=== PATIENT | female | born 1995 | race Caucasian/White ===

== ENCOUNTER → 2020-07-21 16:48 | Outpatient (CLI) | payer OTHER, SELFPAY ==
[2020-07-21 17:15] LABS: Add Manual Diff / Slide Review NO; Basophils Absolute Auto 0 /uL (0-100); Basophils Percent Auto 0.6 % (0-2); Eosinophils Absolute Auto 300 /uL (0-450); Eosinophils Percent Auto 3.5 % (2-4); Hematocrit 43.1 % (36-46); Hemoglobin 14.3 g/dL (12.0-16.0); Lymphocytes Absolute Auto 2700 /uL (1100-4500); Lymphocytes Percent Auto 36.3 % (25-40); Mean Corpuscular HGB Conc 33.3 % (30-36); Mean Corpuscular Hemoglobin 29.7 PG (26-34); Mean Corpuscular Volume 89.2 fL (80-100); Monocytes Absolute Auto 400 /uL (0-900); Monocytes Percent Auto 4.8 % (3-14); Neutrophils Absolute Auto 4100 /uL (1500-7000); Neutrophils Percent Auto 54.8 % (50-75); Platelet Count 252 X10^3/uL (150-400); Red Blood Cell Count 4.83 X10^6/uL (4.0-5.2); Red Cell Distribution Width 13.5 % (11.6-14.8); White Blood Cell Count 7.5 X10^3/uL (4.5-11.0)
[2020-07-21 17:39] LABS: Alanine Aminotransferase 14 IU/L (<35); Albumin 4.1 g/dL (3.5-5.0); Albumin Globulin Ratio 1.1 (1.0-2.8); Alkaline Phosphatase 61 U/L (38-126); Aspartate Aminotransferase 22 IU/L (14-36); BUN Creatinine Ratio 16.5 (6-22); Bilirubin Total 0.4 mg/dL (0.2-1.3); Blood Urea Nitrogen 15 mg/dL (7-17); Calcium 9.7 mg/dL (8.4-10.2); Carbon Dioxide 29 mmol/L (22-32); Chloride 105 mmol/L (98-107); Estimated Glomerular Filt Rate > 60.0 mL/min (>60); Globulin 3.8 g/dL (1.7-4.1); Glucose 94 mg/dL (70-100); HEMOLYSIS < 15 (0-50); Potassium 4.1 mmol/L (3.4-5.1); Sodium 139 mmol/L (137-145); Total Protein 7.9 g/dL (6.3-8.2)
[2020-07-21 17:57] LABS: Erythrocyte Sedimentation Rate 9 MM/HR (0-20)
[2020-07-21 18:01] LABS: C-Reactive Protein Quant 1.1 mg/dL (<1.0)
== END ==
PROVIDERS: PCP Family Medicine; Referring Provider Family Medicine; Visit Provider Family Medicine
DX: G43.909 Migraine, unspecified, not intractable, without status migrainosus (principal); H02.409 Unspecified ptosis of unspecified eyelid
CPT/HCPCS: 36415; 80053; 85025; 85651; 86140

== ENCOUNTER → 2020-09-24 09:46 | Outpatient (CLI) | payer OTHER, SELFPAY ==
--- NOTE | 2020-09-24 09:48 | DI.RAD.S_ITS ---
PROCEDURE: XR CHEST 2V INDICATIONS: chest discomfort TECHNIQUE: 2 views of the chest were acquired. COMPARISON: None. FINDINGS: Surgical changes and devices: None. Lungs and pleura: Lungs are clear. No pleural effusions or pneumothorax. Mediastinum: Mediastinal contours are normal. Heart size is normal. Bones and chest wall: No suspicious bony abnormalities. Soft tissues appear unremarkable. IMPRESSION: Normal chest plain films. Dictated by: Monroe Goldstein M.D. on 09/24/2020 at 10:06 Approved by: Monroe Goldstein M.D. on 09/24/2020 at 10:06
[2020-09-24 11:27] LABS: Alanine Aminotransferase 45 IU/L (<35); Albumin 4.1 g/dL (3.5-5.0); Albumin Globulin Ratio 1.4 (1.0-2.8); Alkaline Phosphatase 76 U/L (38-126); Aspartate Aminotransferase 28 IU/L (14-36); BUN Creatinine Ratio 24.1 (6-22); Bilirubin Total 0.2 mg/dL (0.2-1.3); Blood Urea Nitrogen 19 mg/dL (7-17); Calcium 9.6 mg/dL (8.4-10.2); Carbon Dioxide 24 mmol/L (22-32); Chloride 106 mmol/L (98-107); Estimated Glomerular Filt Rate > 60.0 mL/min (>60); Glucose 85 mg/dL (70-100); HEMOLYSIS < 15 (0-50); Potassium 4.4 mmol/L (3.4-5.1); Sodium 136 mmol/L (137-145); Total Protein 7.1 g/dL (6.3-8.2)
== END ==
PROVIDERS: PCP Family Medicine; Referring Provider Family Medicine; Visit Provider Family Medicine
DX: C96.6 Unifocal Langerhans-cell histiocytosis (principal); R74.8 Abnormal levels of other serum enzymes; R07.9 Chest pain, unspecified
CPT/HCPCS: 36415; 71046; 80053

== ENCOUNTER 2020-12-18 11:44 | Inpatient (IN) | payer OTHER, SELFPAY ==
[2020-12-18] VITALS (17 sets, daily range): BP systolic 109–132; BP diastolic 61–74; PULSE 105–152; RESP 14–22; TEMP 37.4–38.4; O2SAT 99–100; BMI 35.5
--- NOTE | 2020-12-18 12:08 | ED.RECABL ---
HPI - Recheck/Abnormal Lab/Rx General Chief Complaint: Recheck/Abnormal Lab/Rx Stated Complaint: referred by oncology, low WBC count Time Seen by Provider: 12/18/20 11:45 Source: patient Mode of arrival: Ambulatory Limitations: no limitations History of Present Illness HPI narrative: Patient is a 25-year-old female. She is undergoing chemotherapy. Last week she was having a sore throat and was started on antibiotics by her oncologist. States that the sore throat went away but now returns again today. She denies any chest pain. No abdominal pain. No nausea vomiting. She was sent to the emergency department because of the continued sore throat by her oncologist and because her blood counts were decreasing. Related Data Home Medications Medication Instructions Recorded Confirmed acyclovir 800 mg PO BID 12/10/20 12/10/20 clonazepam 0.5 mg PO BEDTIME 12/10/20 12/10/20 ergocalciferol (vitamin D2) 50,000 unit PO Q7D 12/10/20 12/10/20 [Vitamin D2] famotidine 40 mg PO DAILY 12/10/20 12/10/20 ferrous sulfate 324 mg PO DAILY 12/10/20 12/10/20 letrozole 2.5 mg PO DAILY 12/10/20 12/10/20 melatonin 10 mg PO BEDTIME PRN 12/10/20 12/10/20 norethindrone acetate 5 mg PO DAILY 12/10/20 12/10/20 oxycodone 5 mg PO Q4H PRN 12/10/20 12/10/20 prochlorperazine maleate 5 mg PO BID PRN 12/10/20 12/10/20 senna 8.6 mg PO BID PRN 12/10/20 12/10/20 Previous Rx's Medication Instructions Recorded pantoprazole 20 mg tablet,delayed 20 mg PO DAILY #90 tab 11/06/20 release ciprofloxacin HCl 500 mg PO BID #14 tab 12/16/20 Allergies Allergy/AdvReac Type Severity Reaction Status Date / Time No Known Drug Allergies Allergy Verified 12/18/20 13:02 Review of Systems Constitutional Constitutional: Denies chills, Denies fever(s) and Denies headache(s) Eyes Eyes: Denies change in vision ENT Ears, Nose, Mouth, and Throat: Denies vertigo, Denies dizziness, Denies headache(s) and Reports sore throat Cardiovascular Cardiovascular: Denies chest pain and Denies dyspnea Respiratory Respiratory: Denies dyspnea Gastrointestinal Gastrointestinal: Denies abdominal pain, Denies nausea and Denies vomiting Genitourinary Genitourinary: Denies dysuria Genitourinary: Denies dysuria Musculoskeletal Musculoskeletal: Denies arthralgias and Denies myalgias Integumentary/Breasts Skin/Breast: Denies rash Neurologic Neurologic: Denies behavioral changes, Denies vertigo, Denies dizziness and Denies headache(s) Psychiatric Psychiatric: Denies behavioral changes Endocrine Endocrine: Denies flushing Hematologic/Lymphatic On Anticoagulants: No Allergic/Immunologic Allergic/Immunologic: Denies urticaria Patient History Medical History Acne (~2016) Acne vulgaris Anxiety (~2017) Chicken pox (~1995) Dog bite of hand GERD (gastroesophageal reflux disease) (~2018) IBS (irritable bowel syndrome) (~2018) Langerhans cell histiocytoses Migraines (~2017) Ovarian cyst (~2017) PTSD (post-traumatic stress disorder) (~2017) Tinnitus (~2016) Uterine polyp (~2018) Surgical History (Updated 12/10/20 @ 10:17 by Yandel Delcid MD) Anesthesia History of bunionectomy (~2012) History of dilation and curettage (~2018) History of foot surgery (~2018) Family History Father Diabetes mellitus Hyperlipidemia Hypertension Grandfather Skin cancer Grandmother Acute kidney failure Grandfather Lung cancer Diabetes mellitus Hyperlipidemia Hypertension Mental health problem Alzheimer's disease Grandmother Breast cancer Diabetes mellitus Social History Smoking Status: Never smoker Smoking Status: Never smoker Substance Use Type: marijuana Exam Initial Vital Signs Initial Vital Signs: Vital Signs Temperature 99.5 F 12/18/20 11:53 Pulse Rate 122 H 12/18/20 11:53 Respiratory Rate 16 12/18/20 11:53 Blood Pressure 132/74 12/18/20 11:53 Pulse Oximetry 100 12/18/20 11:53 Const General: cooperative, comfortable and well developed Limitations: mental status not altered [facility] Head: normal to inspection and normocephalic Ears: external ears normal Mouth: oral mucosae normal Teeth and gingiva: dentition normal Throat: uvula midline and other (Exudates right-sided) Resp Effort & Inspection: normal respiratory effort Auscultation: clear to auscultation bilaterally Cardio Rate: tachycardic Rhythm: regular rhythm GI Inspection: non-distended Palpation: soft Skin Lesions: no lesions Rashes: no rashes Neuro General: patient alert, patient awake and patient oriented x3 Cognition: normal cognition Speech: speech normal Extrem General: normal to inspection and capillary refill normal Psych Appearance: grossly normal and well kempt Course Orders Ordered: ED Orders 12/18/20 12:04 EKG-12 Lead Stat 12/18/20 12:10 XR chest 1V Stat 12/18/20 12:18 Blood Culture Stat Lactate (Lactic Acid) Stat Lipase Stat Monotest Stat Procalcitonin Stat 12/18/20 12:31 Urinalysis and Microscopic Stat Urine Culture Stat 12/18/20 12:37 COVID19 - ADMIT ([facility] swab/PCR) Stat 12/18/20 13:43 Throat Culture Stat 12/18/20 14:03 Consult to Hospitalist Service Stat 12/19/20 05:00 Basic Metabolic Panel DAILY Complete Blood Count AUTO DIFF DAILY Hemoglobin A1C% w Est Avg Glu Routine Magnesium DAILY TSH w/ Reflex to FT4 Routine 12/20/20 05:00 Basic Metabolic Panel DAILY Complete Blood Count AUTO DIFF DAILY Magnesium DAILY 12/21/20 05:00 Basic Metabolic Panel DAILY Complete Blood Count AUTO DIFF DAILY Magnesium DAILY Acetaminophen (Acetaminophen 325 Mg Tablet) 650 mg PO Q6HR PRN PRN Reason: Fever/Mild Pain (1-3) Clotrimazole (Clotrimazole Yadira 10 Mg) 10 mg PO 5XD [place] Enoxaparin Sodium (Enoxaparin 40 Mg/0.4 Ml Syringe) 40 mg SUBCUT DAILY [place] Sodium Chloride (Normal Saline 0.9%) 1,000 mls @ 100 mls/hr IV CONT [place] Ondansetron HCl (Ondansetron 4 Mg/2 Ml Inj) 4 mg IV Q8HR PRN PRN Reason: Nausea And Vomiting Discontinued Medications Clonazepam (Clonazepam 0.5 Mg Tablet) 0.5 mg PO NOW ONE Stop: 12/18/20 14:38 Sodium Chloride (Normal Saline 0.9%) 1,000 mls @ 1,000 mls/hr IV BOLUS ONE Stop: 12/18/20 13:24 Last Infusion: 12/18/20 14:05 Dose: 0 mls/hr Documented by: Admin: 12/18/20 12:35 Dose: 1,000 mls/hr Documented by: KAYY Cefepime HCl 2 gm/ Sodium (Chloride) 100 mls @ 200 mls/hr IV NOW ONE Stop: 12/18/20 14:00 Last Admin: 12/18/20 14:13 Dose: 200 mls/hr Documented by: KAYY Lidocaine HCl (Lidocaine Viscous 2% 15 Ml Solution) 15 ml PO NOW ONE Stop: 12/18/20 13:05 Last Admin: 12/18/20 13:22 Dose: 15 ml Documented by: KAYY Vital Signs Vital signs: Vital Signs - 8 hr 12/18/20 11:53 12/18/20 12:05 12/18/20 12:40 Temperature 99.5 F Pulse Rate 122 H 122 H 125 H Respiratory Rate 16 15 17 Blood Pressure 132/74 132/74 128/69 Pulse Oximetry 100 100 100 12/18/20 13:00 12/18/20 13:30 12/18/20 13:42 Temperature Pulse Rate 115 H 105 H 111 H Respiratory Rate 14 20 22 Blood Pressure 116/67 109/61 Pulse Oximetry 100 100 100 12/18/20 14:00 Temperature Pulse Rate 125 H Respiratory Rate 20 Blood Pressure 113/71 Pulse Oximetry 99 MDM - Recheck/Abnormal Lab/Rx Lab Data Attestation: I reviewed the patient's lab results. Labs: Lab Results 12/18/20 12/18/20 12/18/20 Range/Units 12:18 12:18 12:18 Lactate 0.9 (0.7-2.1) mmol/L Lipase 65 (23-300) U/L Procalcitonin 0.04 (<0.5) ng/mL SARS-CoV-2 (PCR) (Negative) Monoscreen Negative (Negative) 12/18/20 Range/Units 12:37 Lactate (0.7-2.1) mmol/L Lipase (23-300) U/L Procalcitonin (<0.5) ng/mL SARS-CoV-2 (PCR) Negative (Negative) Monoscreen (Negative) Point of Care Testing Test Results Negative Rapid Strep A Negative Urine Dip Bedside Urine Glucose Negative Bedside Urine Bilirubin - Negative Bedside Urine Ketone + 15 Urine Specific [place] 1.015 Bedside Urine Occult Blood +/- Bedside Urine pH 6.0 Bedside Urine Protein - Negative Bedside Urine Urobilinogen - Negative Bedside Urine Nitrite - Negative Bedside Urine Leukocytes - Negative Esterase Imaging Data CT scan - chest: Radiologist's Impression: [address] [id number] ReportSigned Patient: Yuri Messer#: [id number]: 1995Acct:[id number]/Sex: 25 / FDate of Service: 12/18/20Loc: EDAccession Number: [id number] Procedure: XR chest 1V Ordering Provider: Rubens Duran D.O. PROCEDURE: XR CHEST 1V INDICATIONS: Fever, sore throat, on chemotherapy TECHNIQUE: One view of the chest was acquired. COMPARISON: [facility], , XR CHEST 2V, 09/24/2020, 10:01. FINDINGS: Surgical changes and devices: Right chest Port-A-Cath Lungs and pleura: Lungs are clear. No pleural effusions or pneumothorax. Mediastinum: Mediastinal contours appear normal. Heart size is normal. Bones and chest wall: No suspicious bony lesions. Overlying soft tissues appear unremarkable. IMPRESSION: No evidence acute pulmonary process. Dictated by: Zackary Rowe M.D. on 12/18/2020 at 12:40 Approved by: Zackary Rowe M.D. on 12/18/2020 at 12:46 ECG Data Attestation: I personally reviewed and interpreted this ECG as follows: Prior ECG tracings: not available for review Interpretation: Sinus tachycardia Ventricular rate 131 Right axis deviation Normal QRS Normal QTC No ST T wave changes MDM Narrative Medical decision making narrative: Patient's CBC and chemistry were drawn earlier today. This does show white blood cell count of 1.1. She has an absolute neutrophil count of 44. Temperature 99.5? here. She does have bilateral pharyngeal exudates with right being greater than left however I have low suspicion for peritonsillar/retropharyngeal abscess given her exam today. Her rapid strep was negative. Throat culture was pending. Patient was tachycardic but this improved with time and fluids. I have a high suspicion that this is related to anxiety. Her procalcitonin was negative. Lactate was negative. I did hold on antibiotics initially because of temperature only be 99.5 and her lab tests that were resulting were reassuring and also the fact that she has been on Cipro on acyclovir. I did discuss the case with Dr. Centeno with Oncology who did recommend admission with observation antibiotics based on her lap counts and the fact that she is having a sore throat. Discussed the case with Dr. Patel who evaluated the patient here in the emergency department. Will admit for further evaluation and treatment. I did discuss this with the patient. She expressed understanding and agreement. Discharge Plan Departure Patient Disposition: Admitted as Observation Clinical Impression: Dehydration, Pharyngitis, Neutropenia Admit Date/Time: 12/18/20 14:36 Admit Provider: Niraml Patel
[2020-12-18] MEDS: SODIUM CHLORIDE 0.9% 1,000 ML 1000 ML IV ×2 (12:35→19:11)
[2020-12-18 12:38] LABS: Monotest Negative (Negative)
[2020-12-18 12:46] LABS: Lactate (Lactic Acid) 0.9 mmol/L (0.7-2.1); Lipase 65 U/L (23-300)
[2020-12-18 13:04] LABS: Procalcitonin 0.04 ng/mL (<0.5)
[2020-12-18] MEDS: LIDOCAINE VISCOUS 2% 15 ML SOLUTION PO (13:22)
[2020-12-18] MEDS: CEFEPIME 2 GM in SODIUM CHLORIDE 0.9% 100 ML 200 ML IV (14:13)
[2020-12-18 14:18] LABS: COVID19 - ADMIT (NP swab/PCR) Negative (Negative)
[2020-12-18] MEDS: clonazePAM 0.5 MG TABLET PO ×2 (14:40→21:36)
--- NOTE | 2020-12-18 14:47 | PM.HP.1 ---
History of Present Illness History of Present Illness Date Patient Seen: 12/18/20 Time Patient Seen: 14:48 Chief complaint: referred by oncology, low WBC count Narrative: sore throat x1 day, no nausea vomiting chest pain. Patient History Medical History Acne (~2016) Acne vulgaris Anxiety (~2017) Chicken pox (~1995) Dog bite of hand GERD (gastroesophageal reflux disease) (~2018) IBS (irritable bowel syndrome) (~2018) Langerhans cell histiocytoses Migraines (~2017) Ovarian cyst (~2017) PTSD (post-traumatic stress disorder) (~2017) Tinnitus (~2016) Uterine polyp (~2018) Surgical History (Updated 12/10/20 @ 10:17 by Yandel Delcid MD) Anesthesia History of bunionectomy (~2012) History of dilation and curettage (~2018) History of foot surgery (~2018) Family & Social History Family History Father Diabetes mellitus Hyperlipidemia Hypertension Grandfather Skin cancer Grandmother Acute kidney failure Grandfather Lung cancer Diabetes mellitus Hyperlipidemia Hypertension Mental health problem Alzheimer's disease Grandmother Breast cancer Diabetes mellitus Safety & Behavioral: Feels Safe in Current Yes Environment Been Physically Hurt or No Threatened By a Person Tobacco & Substance use: Smoking Status Never smoker Substance Use Type marijuana Meds Home Medications and Allergies Home Medications Medication Instructions Recorded Confirmed Type pantoprazole 20 mg tablet,delayed 20 mg PO DAILY #90 tab 11/06/20 12/10/20 Rx release acyclovir 800 mg PO BID 12/10/20 12/10/20 History clonazepam 0.5 mg PO BEDTIME 12/10/20 12/10/20 History ergocalciferol (vitamin D2) 50,000 unit PO Q7D 12/10/20 12/10/20 History [Vitamin D2] famotidine 40 mg PO DAILY 12/10/20 12/10/20 History ferrous sulfate 324 mg PO DAILY 12/10/20 12/10/20 History letrozole 2.5 mg PO DAILY 12/10/20 12/10/20 History melatonin 10 mg PO BEDTIME PRN 12/10/20 12/10/20 History norethindrone acetate 5 mg PO DAILY 12/10/20 12/10/20 History oxycodone 5 mg PO Q4H PRN 12/10/20 12/10/20 History prochlorperazine maleate 5 mg PO BID PRN 12/10/20 12/10/20 History senna 8.6 mg PO BID PRN 12/10/20 12/10/20 History ciprofloxacin HCl 500 mg PO BID #14 tab 12/16/20 Rx Allergies Allergy/AdvReac Type Severity Reaction Status Date / Time No Known Drug Allergies Allergy Verified 12/18/20 13:02 Exam Vital Signs (past 8 hours): - 12/18/20 11:53 12/18/20 12:05 12/18/20 12:40 Temperature 99.5 F Pulse Rate 122 H 122 H 125 H Respiratory Rate 16 15 17 Blood Pressure 132/74 132/74 128/69 Pulse Oximetry 100 100 100 12/18/20 13:00 12/18/20 13:30 12/18/20 13:42 Temperature Pulse Rate 115 H 105 H 111 H Respiratory Rate 14 20 22 Blood Pressure 116/67 109/61 Pulse Oximetry 100 100 100 12/18/20 14:00 Temperature Pulse Rate 125 H Respiratory Rate 20 Blood Pressure 113/71 Pulse Oximetry 99 Oxygen Delivery Method Room Air Objective Labs Labs: Laboratory Results - last 24 hr 12/18/20 12/18/20 12/18/20 12:18 12:18 12:18 Lactate 0.9 Lipase 65 Procalcitonin 0.04 SARS-CoV-2 (PCR) Monoscreen Negative 12/18/20 12:37 Lactate Lipase Procalcitonin SARS-CoV-2 (PCR) Negative Monoscreen
[2020-12-18 16:27] LABS: Bacteria Urine None Seen
[2020-12-18 16:29] LABS: Appearance Urine UA CLEAR; Bilirubin Urine UA NEGATIVE (NEGATIVE); Color Urine UA YELLOW; Glucose Urine UA NEGATIVE (Negative); Ketones Urine UA 3+ (NEGATIVE); Leukocyte Esterase Urine UA NEGATIVE (NEGATIVE); Nitrite Urine UA NEGATIVE (Negative); Occult Blood Urine UA 2+ (Negative); Protein Urine UA NEGATIVE (Negative); Specific Gravity Urine UA 1.015 (1.000-1.035); Urobilinogen Urine UA 0.2 E.U./dL (0.2)
[2020-12-18 16:34] LABS: Culture Indicated Urine Cult Not Indicated; RBC Urine 1-5/HPF (0-5/HPF); Squamous Epithelial Cell Urine 1-5 /HPF (0-5/HPF); WBC Urine 1-5/HPF (0-5/HPF)
[2020-12-18] MEDS: SODIUM CHLORIDE 0.9% 1,000 ML 100 ML IV (17:16)
[2020-12-18] MEDS: CLOTRIMAZOLE TROCHE 10 MG PO ×2 (17:16→21:36)
--- NOTE | 2020-12-18 17:50 | PM.HP.1 ---
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 Patient states that starting yesterday she has developed a sore throat, with severe pain upon swallowing. She denies any symptoms like this in the past. She denies overt fever, chills, nausea, vomiting, abdominal pain, chest pain, shortness of breath, lower extremity edema, rash. Her sore throat is severe enough that is causing her a lot of discomfort and she has been unable to tolerate much oral intake since yesterday. In the emergency room, the patient was tachycardic into the 120s-130s, improved with initial fluid bolus. She was mildly hypertensive which improved upon arrival to the hospital floor. The remainder of her vital signs were unremarkable and she was saturating well on room air. Chest x-ray was performed which was unremarkable. Urinalysis was performed which showed 1-5 wbc's and rbc's per high-power field but is also slightly contaminated with 1-5 squamous epithelial cells. COVID-19 testing was negative. Rapid strep testing was negative. Monospot testing was negative. CBC performed as an outpatient showed a WBC of 1.1, with 4% neutrophils (Neutrophil count of 44). Patient was admitted for acute dehydration secondary to pharyngitis of uncertain etiology. Patient History Medical History Acne (~2016) Acne vulgaris Anxiety (~2017) Chicken pox (~1995) Dog bite of hand GERD (gastroesophageal reflux disease) (~2018) IBS (irritable bowel syndrome) (~2018) Langerhans cell histiocytoses Migraines (~2017) Ovarian cyst (~2018) PTSD (post-traumatic stress disorder) (~2018) Tinnitus (~2017) Uterine polyp (~2019) Surgical History Anesthesia History of bunionectomy (~2012) History of dilation and curettage (~2018) History of foot surgery (~2019) Family & Social History Family History Father Diabetes mellitus Hyperlipidemia Hypertension Grandfather Skin cancer Grandmother Acute kidney failure Grandfather Lung cancer Diabetes mellitus Hyperlipidemia Hypertension Mental health problem Alzheimer's disease Grandmother Breast cancer Diabetes mellitus Social History: household members spouse Prior Living Arrangements House Safety & Behavioral: Feels Safe in Current Yes Environment Been Physically Hurt or No Threatened By a Person Suicidal Ideation Description None Suicide Plan Description No Plan Tobacco & Substance use: Smoking Status Never smoker alcohol intake never Substance Use Type marijuana Meds Home Medications and Allergies Home Medications Medication Instructions Recorded Confirmed Type pantoprazole 20 mg tablet,delayed 20 mg PO DAILY #90 tab 11/06/20 12/18/20 Rx release acyclovir 800 mg PO BID 12/10/20 12/18/20 History clonazepam 0.5 mg PO TID PRN 12/10/20 12/18/20 History ergocalciferol (vitamin D2) 50,000 unit PO Q7D 12/10/20 12/18/20 History [Vitamin D2] famotidine 40 mg PO DAILY 12/10/20 12/18/20 History ferrous sulfate 324 mg PO BID 12/10/20 12/18/20 History melatonin 10 mg PO BEDTIME PRN 12/10/20 12/18/20 History norethindrone acetate 5 mg PO DAILY 12/10/20 12/18/20 History oxycodone 5 mg PO Q4H PRN 12/10/20 12/18/20 History prochlorperazine maleate 5 mg PO BID PRN 12/10/20 12/18/20 History senna 8.6 mg PO BID PRN 12/10/20 12/18/20 History ciprofloxacin HCl 500 mg PO BID #14 tab 12/16/20 12/18/20 Rx Allergies Allergy/AdvReac Type Severity Reaction Status Date / Time No Known Drug Allergies Allergy Verified 12/18/20 13:02 Review of Systems Review of Systems Narrative: All other systems reviewed with the patient and are negative unless otherwise stated. Exam Vital Signs (past 8 hours): - 12/18/20 11:53 12/18/20 12:05 12/18/20 12:40 Temperature 99.5 F Pulse Rate 122 H 122 H 125 H Respiratory Rate 16 15 17 Blood Pressure 132/74 132/74 128/69 Pulse Oximetry 100 100 100 12/18/20 13:00 12/18/20 13:30 12/18/20 13:42 Temperature Pulse Rate 115 H 105 H 111 H Respiratory Rate 14 20 22 Blood Pressure 116/67 109/61 Pulse Oximetry 100 100 100 12/18/20 14:00 12/18/20 16:35 12/18/20 16:45 Temperature 99.5 F Pulse Rate 125 H 123 H Respiratory Rate 20 17 Blood Pressure 113/71 109/68 Pulse Oximetry 99 100 100 Oxygen Delivery Method Room Air Oxygen Flow Rate 0 Narrative Exam Narrative: GENERAL APPEARANCE: Well developed, well nourished, in no acute distress. SKIN: Inspection of the skin reveals no rashes, ulcerations or petechiae. HEENT: Normocephalic atraumatic, extraocular muscles are intact, oropharynx is clear and mucous membranes are dry. There are patchy white exudates, more prominent on her left tonsil NECK: Supple and symmetric. There was no thyroid enlargement. Neck is slightly tender, with bilateral cervical adenopathy. CHEST: Normal AP diameter and normal contour without any kyphoscoliosis. LUNGS: Auscultation of the lungs revealed no wheezes, rhonchi, or rales. CARDIOVASCULAR: There was a tachycardic rate with regular rhythm without any murmurs, gallops, rubs. Peripheral pulses were 2+ and symmetric. ABDOMEN: Soft and nontender with normal bowel sounds. MUSCULOSKELETAL: There was no tenderness or effusions noted. Muscle strength and tone were normal. EXTREMITIES: No cyanosis, clubbing or edema. NEUROLOGIC: Alert and oriented x 3. Normal affect. Gait was normal. Strength is +5/5 in the Upper Extremities and Lower Extremities Bilaterally. Sensation to touch was normal. Objective ECG Impression: Sinus tachycardia with a rate of 138. No significant ST elevations or depressions to indicate active ischemia. Imaging Chest x-ray: My impression: No acute cardiopulmonary process. Radiologist's impression: No acute cardiopulmonary process Labs Labs: Laboratory Results - last 24 hr 12/18/20 12/18/20 12/18/20 12:18 12:18 12:18 Lactate 0.9 Lipase 65 Procalcitonin 0.04 Urine Color Urine Appearance Urine pH Ur Specific [place] Urine Protein Urine Glucose (UA) Urine Ketones Urine Occult Blood Urine Nitrate Urine Bilirubin Urine Urobilinogen Ur Leukocyte Esterase Urine RBC Urine WBC Ur Squamous Epith Cells Urine Bacteria Ur Culture Indicated? SARS-CoV-2 (PCR) Monoscreen Negative 12/18/20 12/18/20 12:37 16:25 Lactate Lipase Procalcitonin Urine Color Yellow Urine Appearance Clear Urine pH 6.0 Ur Specific [place] 1.015 Urine Protein Negative Urine Glucose (UA) Negative Urine Ketones 3+ H Urine Occult Blood 2+ H Urine Nitrate Negative Urine Bilirubin Negative Urine Urobilinogen 0.2 Ur Leukocyte Esterase Negative Urine RBC 1-5/hpf Urine WBC 1-5/hpf Ur Squamous Epith Cells 1-5 /hpf Urine Bacteria None seen Ur Culture Indicated? 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 Patient was admitted for acute dehydration secondary to pharyngitis of uncertain etiology, and severe neutropenia. 1. Acute pharyngitis and tonsillitis, present on admission - CENTOR score is 3, would be 4 if febrile. There are patchy white exudates on her tonsils. Rapid strep and monospot testing negative. Throat culture was sent. -She was given a dose of cefepime in the emergency room, will continue ceftriaxone at this time pending throat culture given severe neutropenia. -symptoms may also be consistent with a fungal pharyngitis given her severe neutropenia, will trial clotrimazole troches to see if there is any improvement. -send HIV testing, COVID 19 testing negative. 2. Dehydration, acute, present on admission -pharyngitis and tonsillitis Are causing her significant pain limiting her ability to tolerate adequate oral intake at this time. Will continue IV hydration with normal saline, she remains tachycardic although slightly improved from the emergency room after 1 L bolus. 3. Severe neutropenia, acute, present on admission -outpatient lab values with a WBC of 1.1 with 4% neutrophils, or a neutrophil count of 44. This is likely secondary to her chemotherapy however She did develop thrombocytopenia which has improved, so there is also possibility this may be related to her acute infection. -will continue to monitor, if she develops fever she will need broad coverage for neutropenic fever, however she denies fever and has been afebrile thus far. 4. Langerhans cell histiocytosis, - s/p tumor resection recently, biopsy revealed the above diagnosis. Currently undergoing chemotherapy with cytarabine and ovary sparing leupron. - will continue to monitor, consider discussion with oncology for filgrastim if continues. Code: Full as discussed with the patient DVT: lovenox daily Dispo: admitted under observation status as her stay is not expected to exceed 2 midnights.
[2020-12-18] MEDS: ACETAMINOPHEN 325 MG TABLET 650 MG PO ×2 (18:23→23:35)
[2020-12-18] MEDS: ACYCLOVIR 400 MG TABLET 800 MG PO (21:35)
[2020-12-18] MEDS: FERROUS SULFATE 325 MG TABLET PO (21:36)
[2020-12-18] MEDS: CEFTRIAXONE 1 GM/50 ML FROZ.PIGGY IV (21:36)
[2020-12-18] MEDS: IBUPROFEN 200 MG TABLET PO (22:39)
[2020-12-18] MEDS: OXYCODONE IR 5 MG TABLET PO (23:42)
[2020-12-19] VITALS (16 sets, daily range): BP systolic 102–138; BP diastolic 47–98; PULSE 98–142; RESP 17–24; TEMP 37.1–39.8; O2SAT 98–100
[2020-12-19] MEDS: SODIUM CHLORIDE 0.9% 1,000 ML 150 ML IV ×2 (01:38→15:00)
--- NOTE | 2020-12-19 02:33 | PC.NURSE ---
Addendum entered by Fanny Hughes R.N. 12/19/20 05:54: 0512 Temp 102.7. PHOTO RETOUCHER informed and reviewed other VS with RN. Order received for 1x dose 975mg Tylenol and change in antibiotics ordered. Original Note: 2338: patient is alert and oriented. Breath sounds CTA with RA sat of 100%. Complains of 6/10 throat pain/ difficulty swallowing so was medicated with Oxycodone, provided with ice chips and popscicle with pain decreasing to 3/10. Throat is reddened and appears slightly swollen. Temperature of 101.2 so was medicated with Tylenol with fever decreasing to 99.4. HRR but tachy at 124 bpm; telemetry reading was ST. Denies nausea. BT present and abdomen is soft. Denies dysuria, frequency or urgency with urination. Independent with mobility and is steady on feet. Fall risk score is moderate; patient verbalizes to call for assistance when out of bed if feeling weak, dizzy or lightheaded. Spouse rooming in.
[2020-12-19] MEDS: ACETAMINOPHEN 325 MG TABLET 975 MG PO (05:12)
[2020-12-19] MEDS: OXYCODONE IR 5 MG TABLET PO ×3 (05:25→14:02)
[2020-12-19] MEDS: CEFEPIME 1 GM in SODIUM CHLORIDE 0.9% 100 ML 200 ML IV (05:38)
[2020-12-19] MEDS: CLOTRIMAZOLE TROCHE 10 MG PO (05:39)
[2020-12-19 06:07] LABS: Hematocrit 29.2 % (36-46); Hemoglobin 9.7 g/dL (12.0-16.0); Mean Corpuscular HGB Conc 33.1 % (30-36); Mean Corpuscular Volume 81.5 fL (80-100); Platelet Count 367 X10^3/uL (150-400); Red Blood Cell Count 3.58 X10^6/uL (4.0-5.2); Red Cell Distribution Width 14.6 % (11.6-14.8)
[2020-12-19 06:12] LABS: Add Manual Diff / Slide Review YES
[2020-12-19 06:13] LABS: White Blood Cell Count 1.7 X10^3/uL (4.5-11.0)
[2020-12-19] MEDS: VANCOMYCIN 1,500 MG/300 ML PIGGYBACK 150 MG IV ×2 (06:18→14:50)
[2020-12-19 06:21] LABS: BUN Creatinine Ratio 8.1 (6-22); Blood Urea Nitrogen 6 mg/dL (7-17); Calcium 8.8 mg/dL (8.4-10.2); Carbon Dioxide 23 mmol/L (22-32); Chloride 107 mmol/L (98-107); Estimated Glomerular Filt Rate > 60.0 mL/min (>60); Glucose 106 mg/dL (70-100); HEMOLYSIS < 15 (0-50); Magnesium 1.9 mg/dL (1.6-2.3); Potassium 3.8 mmol/L (3.4-5.1); Sodium 138 mmol/L (137-145)
[2020-12-19 06:26] LABS: Hemoglobin A1C% w Est Avg Glu 5.2 % (4.0-6.0)
[2020-12-19 06:45] LABS: Neutrophils Absolute Manual 0 /uL (3000-5900); RBC Morphology Normal Morphology; Total Cells Counted 50
[2020-12-19 06:59] LABS: TSH w/ Reflex to FT4 1.29 uIU/mL (0.47-4.68)
[2020-12-19] MEDS: PANTOPRAZOLE 20 MG TABLET PO (10:01)
[2020-12-19] MEDS: FERROUS SULFATE 325 MG TABLET PO ×2 (10:02→19:52)
[2020-12-19] MEDS: ENOXAPARIN 40 MG/0.4 ML SYRINGE SUBCUT (10:02)
[2020-12-19] MEDS: ACETAMINOPHEN 325 MG TABLET 650 MG PO ×4 (10:17→23:59)
[2020-12-19] MEDS: ACYCLOVIR 400 MG TABLET 800 MG PO ×2 (10:17→19:54)
--- NOTE | 2020-12-19 10:36 | DIET.PN ---
Dietary Progress Note RD Note: Pt having difficulty swallowing c throat pain assigned general diet. Per TUMBLING INSTRUCTOR pt did not eat breakfast as it hurt her throat. Adjusted diet order to reflect preference for soft foods, neutropenia, and will send smoothies twice daily and ONS Ensure Max once daily to support protein needs in bariatric friendly formula.
[2020-12-19] MEDS: LIDOCAINE 1% 20 ML INJ (11:00)
--- NOTE | 2020-12-19 11:17 | DI.CT.S_ITS ---
PROCEDURE: CT SOFT TISSUE NECK W CON INDICATIONS: tonsillitis, immunosuppressed, high fever, clinical concern for abscess TECHNIQUE: After the administration of intravenous contrast, 3.0 mm axial sections acquired from the sella to the aortic arch. Additional oblique axial 3.0 mm sections acquired through the pharynx. 3 mm thick coronal and sagittal reformats were generated. For radiation dose reduction, the following was used: automated exposure control. COMPARISON: [facility], RG, CT ANGIO HEAD, 08/20/2020, 9:14. [facility], CR, XR CHEST 1V, 12/18/2020, 12:20. FINDINGS: Image quality: Excellent. Lymph nodes: Enlarged bilateral symmetric cervical lymph nodes are seen. The largest lymph node on the left measures 16 x 14 mm at level 2A. The largest solitary lymph node on the right measures 18 by 12 mm, also at level 2A. Vessels: Visualized vasculature appears patent. Neck spaces: In this patient with this given history, scrutiny is given to the tonsils. Both tonsils are prominent, yet this is a symmetric process, without focal lesion seen. No abnormal fluid collections can be seen. No drainable abscess. The oropharynx, nasopharynx, and pharynx demonstrate no mucosal lesions. The vocal cords, false vocal cords, pyriform sinuses, epiglottis, vallecula, and tongue base all appear normal. Extramucosal spaces appear unremarkable. Glands: The parotid and submandibular glands appear normal. Thyroid gland demonstrates no significant abnormality. Miscellaneous: Visualized brain and orbits appear normal. Lung apices appear clear. Superficial soft tissues appear normal. A right-sided chest port is seen. Bones: No suspicious bony lesions. Visualized sinuses and mastoids appear unremarkable. IMPRESSION: Negative for abscess. Generalized prominence can be seen in the tonsils, which is consistent with the given history. Symmetrically enlarged bilateral cervical lymph nodes are seen, which are most likely reactive in a patient of this age. However, please correlate with known patient history. Incidental note is made of: Right-sided chest port Dictated by: Monroe Goldstein M.D. on 12/19/2020 at 12:31 Approved by: Monroe Goldstein M.D. on 12/19/2020 at 12:34
--- NOTE | 2020-12-19 12:40 | P.PN_ITS ---
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 Patient was admitted for acute dehydration secondary to pharyngitis of uncertain etiology, and severe neutropenia. Overnight she did develop a fever, and given her severe neutropenia on admission she was broadened to cefepime and vancomycin for neutropenic fever precautions. Her CBC this morning however shows an ANC 1394, so seemingly resolved neutropenia. She still remains febrile throughout today, and unable to tolerate much p.o. intake at this time. She also complains of continued trouble swallowing, but denies any wheezing or shortness of breath. Given her severe immune deficiency and worsening despite broad antibiotic coverage, will check a CT of her neck to rule out any possible abscess. Exam Vital Signs (past 8 hours): - 12/19/20 05:12 12/19/20 06:00 12/19/20 08:20 Temperature 102.7 F H 100.8 F H 99.4 F Pulse Rate 98 H Respiratory Rate 17 Blood Pressure 113/71 Pulse Oximetry 99 12/19/20 10:01 Temperature 100.3 F H Pulse Rate Respiratory Rate Blood Pressure Pulse Oximetry Oxygen Delivery Method Room Air Oxygen Flow Rate 0 Narrative Exam Narrative: GENERAL APPEARANCE: Well developed, well nourished, in no acute distress. SKIN: Inspection of the skin reveals no rashes, ulcerations or petechiae. HEENT: Normocephalic atraumatic, extraocular muscles are intact, oropharynx is clear and mucous membranes are dry. There are patchy white exudates, more prominent on her left tonsil NECK: Supple and symmetric. There was no thyroid enlargement. Neck is slightly tender bilaterally, with bilateral cervical adenopathy. CHEST: Normal AP diameter and normal contour without any kyphoscoliosis. LUNGS: Auscultation of the lungs revealed no wheezes, rhonchi, or rales. CARDIOVASCULAR: There was a tachycardic rate with regular rhythm without any murmurs, gallops, rubs. Peripheral pulses were 2+ and symmetric. ABDOMEN: Soft and nontender with normal bowel sounds. MUSCULOSKELETAL: There was no tenderness or effusions noted. Muscle strength and tone were normal. EXTREMITIES: No cyanosis, clubbing or edema. NEUROLOGIC: Alert and oriented x 3. Normal affect. Gait was normal. Strength is +5/5 in the Upper Extremities and Lower Extremities Bilaterally. Sensation to touch was normal. Objective Labs Result Diagrams: 12/19/20 05:20 12/19/20 05:20 Labs: Laboratory Results - last 24 hr 12/18/20 12/18/20 12/18/20 12:18 12:18 12:37 WBC RBC Hgb Hct MCV MCH MCHC RDW Plt Count Neut % (Auto) Lymph % (Auto) [place] % (Auto) Eos % (Auto) Baso % (Auto) Lymph # (Auto) [place] # (Auto) Baso # (Auto) Total Counted Lymphocytes % (Manual) Atypical Lymphs % Monocytes % (Manual) Eosinophils % (Manual) Neutrophils # (Manual) RBC Morphology Sodium Potassium Chloride Carbon Dioxide BUN Creatinine Estimated GFR BUN/Creatinine Ratio Glucose Hemoglobin A1c Lactate 0.9 Calcium Magnesium Lipase 65 Procalcitonin 0.04 TSH Urine Color Urine Appearance Urine pH Ur Specific [place] Urine Protein Urine Glucose (UA) Urine Ketones Urine Occult Blood Urine Nitrate Urine Bilirubin Urine Urobilinogen Ur Leukocyte Esterase Urine RBC Urine WBC Ur Squamous Epith Cells Urine Bacteria Ur Culture Indicated? SARS-CoV-2 (PCR) Negative 12/18/20 12/19/20 12/19/20 16:25 05:20 05:20 WBC 1.7 L* D RBC 3.58 L Hgb 9.7 L Hct 29.2 L MCV 81.5 MCH 27.0 MCHC 33.1 RDW 14.6 Plt Count 367 Neut % (Auto) Not Reportable Lymph % (Auto) Not Reportable [place] % (Auto) Not Reportable Eos % (Auto) Not Reportable Baso % (Auto) Not Reportable Lymph # (Auto) Not Reportable [place] # (Auto) Not Reportable Baso # (Auto) Not Reportable Total Counted 50 Lymphocytes % (Manual) 82.0 H Atypical Lymphs % 6.0 H Monocytes % (Manual) 10.0 Eosinophils % (Manual) 2.0 Neutrophils # (Manual) 0 L RBC Morphology Normal morphology Sodium 138 Potassium 3.8 Chloride 107 Carbon Dioxide 23 BUN 6 L Creatinine 0.74 Estimated GFR > 60.0 BUN/Creatinine Ratio 8.1 Glucose 106 H Hemoglobin A1c Lactate Calcium 8.8 Magnesium 1.9 Lipase Procalcitonin TSH Urine Color Yellow Urine Appearance Clear Urine pH 6.0 Ur Specific [place] 1.015 Urine Protein Negative Urine Glucose (UA) Negative Urine Ketones 3+ H Urine Occult Blood 2+ H Urine Nitrate Negative Urine Bilirubin Negative Urine Urobilinogen 0.2 Ur Leukocyte Esterase Negative Urine RBC 1-5/hpf Urine WBC 1-5/hpf Ur Squamous Epith Cells 1-5 /hpf Urine Bacteria None seen Ur Culture Indicated? Cult not indicated SARS-CoV-2 (PCR) 12/19/20 12/19/20 05:20 05:20 WBC RBC Hgb Hct MCV MCH MCHC RDW Plt Count Neut % (Auto) Lymph % (Auto) [place] % (Auto) Eos % (Auto) Baso % (Auto) Lymph # (Auto) [place] # (Auto) Baso # (Auto) Total Counted Lymphocytes % (Manual) Atypical Lymphs % Monocytes % (Manual) Eosinophils % (Manual) Neutrophils # (Manual) RBC Morphology Sodium Potassium Chloride Carbon Dioxide BUN Creatinine Estimated GFR BUN/Creatinine Ratio Glucose Hemoglobin A1c 5.2 Lactate Calcium Magnesium Lipase Procalcitonin TSH 1.29 Urine Color Urine Appearance Urine pH Ur Specific [place] Urine Protein Urine Glucose (UA) Urine Ketones Urine Occult Blood Urine Nitrate Urine Bilirubin Urine Urobilinogen Ur Leukocyte Esterase Urine RBC Urine WBC Ur Squamous Epith Cells Urine Bacteria Ur Culture Indicated? SARS-CoV-2 (PCR) [facility] Medical History Acne (~2017) Acne vulgaris Anxiety (~2017) Chicken pox (~1995) Dog bite of hand GERD (gastroesophageal reflux disease) (~2018) IBS (irritable bowel syndrome) (~2018) Langerhans cell histiocytoses Migraines (~2018) Ovarian cyst (~2018) PTSD (post-traumatic stress disorder) (~2018) Tinnitus (~2017) Uterine polyp (~2019) Surgical History Anesthesia History of bunionectomy (~2012) History of dilation and curettage (~2019) History of foot surgery (~2019) Family History Father Diabetes mellitus Hyperlipidemia Hypertension Grandfather Skin cancer Grandmother Acute kidney failure Grandfather Lung cancer Diabetes mellitus Hyperlipidemia Hypertension Mental health problem Alzheimer's disease Grandmother Breast cancer Diabetes mellitus Social History household members: spouse Smoking Status: Never smoker alcohol intake: never Assessment & Plan Assessment & Plan narrative: Mery Messer is a 25-year-old female with a 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 Patient was admitted for acute dehydration secondary to pharyngitis of uncertain etiology, and severe neutropenia. 1. Acute pharyngitis and tonsillitis, present on admission - CENTOR score is 4. There are patchy white exudates on her tonsils. Rapid strep and monospot testing negative. Throat culture was sent and is pending. -She was given a dose of cefepime in the emergency room, then given ceftriaxone and broadened to cefepime again and vancomycin after developing fever. Will narrow to unasyn today given resolution of neutropenia. -symptoms not improved with clotrimazole troches, unlikely fungal etiology at this time and will be discontinued. -given continued symptoms, fevers worsening, will check CT of her neck to rule out abscess given her immunocompromised state. -supportive care with lidocaine viscous -HIV testing pending, COVID 19 testing negative. 2. Dehydration, acute, present on admission -pharyngitis and tonsillitis Are causing her significant pain limiting her ability to tolerate adequate oral intake at this time. Will continue IV hydration with normal saline, she remains tachycardic today. 3. Neutropenic fever, acute, present on admission -outpatient lab values with a WBC of 1.1 with 4% neutrophils, or a neutrophil count of 44 on admission. Rapidly improved to 1394 ANC today. This may be secondary to her chemotherapy however this resolved quickly and possibly related to her acute tonsilar infection. -patient was put on cefepime and vanco, however given resolution of neutropenia on labs today this will be narrowed for above tonsilitis. 4. Langerhans cell histiocytosis, - s/p tumor resection recently, biopsy revealed the above diagnosis. Currently undergoing chemotherapy with cytarabine and ovary sparing leupron. - will continue to monitor Code: Full as discussed with the patient DVT: lovenox daily Dispo: changed to inpatient, likely discharge home once fevers improved and patient is able to tolerate adequate oral intake.
[2020-12-19] MEDS: AMPICILLIN/SULBACTAM 3 GM 3 GM in SODIUM CHLORIDE 0.9% 100 ML IV ×2 (13:21→19:36)
[2020-12-19] MEDS: NORETHINDRONE ACETATE 5 MG 5 EACH PO (14:03)
[2020-12-19] MEDS: LIDOCAINE VISCOUS 2% 15 ML SOLUTION PO (14:51)
--- NOTE | 2020-12-19 15:06 | CM.IDA ---
Addendum entered by JOSSIE Khalil 12/21/20 10:24: Patient eager to return home, has supportive spouse at bedside, both confident about return home, no needs identified from this TAP DANCER, home today w/close outpatient f/u JW Original Note: Initial DCP Assessment Note Pt is a 25 yo female, resident of [place], presents to ED with sore throat and outpatient neutropenia, PMH includes Langerhans cell histiocytosis, currently undergoing chemotherapy with cytarabine (+leupron for ovary sparing treatment), treatment managed by [facility] and [facility] in [place] PCP: Ronak Rollins Payer: Cesar Eagle Reviewed chart, pt discussed in multidisciplinary rounds this morning. According to Dr Patel, patient will likely discharge home once fevers improved and patient is able to tolerate adequate oral intake. Patient lives w/spouse, is a of the [place], no children. Notes indicate patient has met Oncology SW Елена Horance-Jonathan at her first F/F oncology visit at , patient was offered ongoing assistance, support, and resource referrals Will attempt further assessment of need 4.3.21, expected to DC home w/spouse upon DC JOSSIE Khalil
[2020-12-19 16:46] LABS: HIV 1 & 2 Ab/Ag 4th Gen Combo NEGATIVE (NEGATIVE)
[2020-12-19] MEDS: OXYCODONE IR 10 MG TABLET PO ×3 (16:59→22:58)
--- NOTE | 2020-12-19 17:09 | PC.NURSE ---
Addendum entered by Jocelyn Branham R.N. 12/19/20 20:00: pt fever increasing up from 98.8 to 99.9 and throat pain increasing to 5 from 3, hr 120 pt medicated with tylenol and oxy 10mg po ,ice pack given. rooming in. Original Note: pt fever 102.5 with noted shaking and increase in throat pain 8/10. medicated with tylenol and oxy 10mg po. dr. matta notified and in to see pt. with monitor.
[2020-12-20] VITALS (11 sets, daily range): BP systolic 101–129; BP diastolic 61–82; PULSE 80–105; RESP 15–18; TEMP 36.6–38.1; O2SAT 99–100
[2020-12-20] MEDS: OXYCODONE IR 10 MG TABLET PO ×2 (01:51→23:39)
[2020-12-20] MEDS: AMPICILLIN/SULBACTAM 3 GM 3 GM in SODIUM CHLORIDE 0.9% 100 ML IV ×4 (01:51→19:41)
[2020-12-20] MEDS: IBUPROFEN 600 MG TABLET PO ×4 (02:04→20:57)
--- NOTE | 2020-12-20 02:21 | PC.NURSE ---
nurse rechecked pt temp around 0200 and was 100.6, pt was given PRN ibuprofen because Tylenol was not due yet. Pt was given two new ice packs and popcycle. pt is now sleeping.
[2020-12-20] MEDS: ACETAMINOPHEN 325 MG TABLET 650 MG PO (06:03)
[2020-12-20 07:03] LABS: Hematocrit 26.9 % (36-46); Hemoglobin 8.9 g/dL (12.0-16.0); Mean Corpuscular Volume 81.6 fL (80-100); Platelet Count 555 X10^3/uL (150-400); Red Blood Cell Count 3.29 X10^6/uL (4.0-5.2); Red Cell Distribution Width 14.6 % (11.6-14.8)
[2020-12-20 07:04] LABS: Add Manual Diff / Slide Review YES
[2020-12-20 07:11] LABS: BUN Creatinine Ratio 7.8 (6-22); Blood Urea Nitrogen 5 mg/dL (7-17); Calcium 8.7 mg/dL (8.4-10.2); Carbon Dioxide 25 mmol/L (22-32); Chloride 102 mmol/L (98-107); Estimated Glomerular Filt Rate > 60.0 mL/min (>60); Glucose 121 mg/dL (70-100); HEMOLYSIS < 15 (0-50); Potassium 3.6 mmol/L (3.4-5.1); Sodium 133 mmol/L (137-145)
[2020-12-20 07:22] LABS: Vancomycin Trough < 5.0 ug/mL (10-20)
[2020-12-20 08:21] LABS: Neutrophils Absolute Manual 160 /uL (3000-5900); Total Cells Counted 50
[2020-12-20 08:22] LABS: Microcytosis 2+
[2020-12-20] MEDS: VANCOMYCIN 1,500 MG/300 ML PIGGYBACK 200 MG IV ×2 (09:37→18:03)
[2020-12-20] MEDS: ENOXAPARIN 40 MG/0.4 ML SYRINGE SUBCUT (09:37)
[2020-12-20] MEDS: FERROUS SULFATE 325 MG TABLET PO ×2 (09:38→20:15)
[2020-12-20] MEDS: ACYCLOVIR 400 MG TABLET 800 MG PO ×2 (09:38→20:15)
[2020-12-20] MEDS: PANTOPRAZOLE 20 MG TABLET PO (09:38)
[2020-12-20] MEDS: NORETHINDRONE ACETATE 5 MG 5 EACH PO (09:39)
--- NOTE | 2020-12-20 10:43 | PC.NURSE ---
Patient states that ibuprofen is working better for her discomfort to throat. into round on patient and states that patient has staph. She seems to be feeling better today. Rafy cath dressing is cdi, iv antibiotics infusing now. She is up independently. Temperatures are better than yesterday, patient will be staying another night.
--- NOTE | 2020-12-20 10:47 | P.PN_ITS ---
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 Patient was admitted for acu te dehydration secondary to pharyngitis of uncertain etiology, and severe neutropenia. Her fevers are improved, throat culture growing now staph aureus, and vancomycin was added pending sensitivities. Plan is to await sensitivities to confirm oral antibiotics are available on discharge against her infection. Exam Vital Signs (past 8 hours): - 12/20/20 04:45 12/20/20 07:02 12/20/20 08:15 Temperature 99.0 F 98.1 F Pulse Rate 95 H 84 Respiratory Rate 18 15 Blood Pressure 109/64 112/69 Pulse Oximetry 99 99 99 Oxygen Delivery Method Room Air Oxygen Flow Rate 0 Narrative Exam Narrative: GENERAL APPEARANCE: Well developed, well nourished, in no acute distress. SKIN: Inspection of the skin reveals no rashes, ulcerations or petechiae. HEENT: Normocephalic atraumatic, extraocular muscles are intact, oropharynx is clear and mucous membranes are moist. There are bilaterally enlarged tonsils without exudates today. NECK: Supple and symmetric. There was no thyroid enlargement. Neck is slightly tender bilaterally, with bilateral cervical adenopathy. CHEST: Normal AP diameter and normal contour without any kyphoscoliosis. LUNGS: Auscultation of the lungs revealed no wheezes, rhonchi, or rales. CARDIOVASCULAR: There was a tachycardic rate with regular rhythm without any murmurs, gallops, rubs. Peripheral pulses were 2+ and symmetric. ABDOMEN: Soft and nontender with normal bowel sounds. MUSCULOSKELETAL: There was no tenderness or effusions noted. Muscle strength and tone were normal. EXTREMITIES: No cyanosis, clubbing or edema. NEUROLOGIC: Alert and oriented x 3. Normal affect. Gait was normal. Strength is +5/5 in the Upper Extremities and Lower Extremities Bilaterally. Sensation to touch was normal. Objective Labs Result Diagrams: 12/20/20 06:45 12/20/20 06:45 Labs: Laboratory Results - last 24 hr 12/19/20 12/20/20 12/20/20 05:20 06:45 06:45 WBC 2.0 L RBC 3.29 L Hgb 8.9 L Hct 26.9 L MCV 81.6 MCH 27.0 MCHC 33.0 RDW 14.6 Plt Count 555 H Neut % (Auto) Not Reportable Lymph % (Auto) Not Reportable [place] % (Auto) Not Reportable Eos % (Auto) Not Reportable Baso % (Auto) Not Reportable Lymph # (Auto) Not Reportable [place] # (Auto) Not Reportable Baso # (Auto) Not Reportable Total Counted 50 Seg Neutrophils % 4.0 L Band Neutrophils % 4.0 Lymphocytes % (Manual) 40.0 Atypical Lymphs % 40.0 H Monocytes % (Manual) 8.0 Eosinophils % (Manual) 4.0 Neutrophils # (Manual) 160 L RBC Morphology See below Microcytosis 2+ H Sodium 133 L Potassium 3.6 Chloride 102 Carbon Dioxide 25 BUN 5 L Creatinine 0.64 Estimated GFR > 60.0 BUN/Creatinine Ratio 7.8 Glucose 121 H Calcium 8.7 Magnesium 2.0 Vancomycin Trough HIV 1&2 Ab/P24 Ag 4thGn Negative 12/20/20 06:45 WBC RBC Hgb Hct MCV MCH MCHC RDW Plt Count Neut % (Auto) Lymph % (Auto) [place] % (Auto) Eos % (Auto) Baso % (Auto) Lymph # (Auto) [place] # (Auto) Baso # (Auto) Total Counted Seg Neutrophils % Band Neutrophils % Lymphocytes % (Manual) Atypical Lymphs % Monocytes % (Manual) Eosinophils % (Manual) Neutrophils # (Manual) RBC Morphology Microcytosis Sodium Potassium Chloride Carbon Dioxide BUN Creatinine Estimated GFR BUN/Creatinine Ratio Glucose Calcium Magnesium Vancomycin Trough < 5.0 L HIV 1&2 Ab/P24 Ag 4thGn [facility] Medical History Acne (~2016) Acne vulgaris Anxiety (~2017) Chicken pox (~1995) Dog bite of hand GERD (gastroesophageal reflux disease) (~2018) IBS (irritable bowel syndrome) (~2018) Langerhans cell histiocytoses Migraines (~2018) Ovarian cyst (~2018) PTSD (post-traumatic stress disorder) (~2018) Tinnitus (~2017) Uterine polyp (~2019) Surgical History Anesthesia History of bunionectomy (~2013) History of dilation and curettage (~2018) History of foot surgery (~2019) Family History Father Diabetes mellitus Hyperlipidemia Hypertension Grandfather Skin cancer Grandmother Acute kidney failure Grandfather Lung cancer Diabetes mellitus Hyperlipidemia Hypertension Mental health problem Alzheimer's disease Grandmother Breast cancer Diabetes mellitus Social History household members: spouse Smoking Status: Never smoker alcohol intake: never Assessment & Plan Assessment & Plan narrative: Mery Messer is a 25-year-old female with a 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 Patient was admitted for acute dehydration secondary to pharyngitis of uncertain etiology, and severe neutropenia. 1. Acute pharyngitis and tonsillitis, present on admission - CENTOR score is 4. There are patchy white exudates on her tonsils. Rapid strep and monospot testing negative. Throat culture was sent and is pending. -She was given a dose of cefepime in the emergency room, then given ceftriaxone and broadened to cefepime again and vancomycin after developing fever. Narrowed to unasyn yesterday. Throat cultures with staph aureus, awaiting sensitivities. She is again neutropenic, but will continue unasyn and vancomycin at this time for possible MRSA given cultures. -given continued symptoms, fevers worsening, CT of the neck was performed which did not reveal an abscess. -supportive care with lidocaine viscous -HIV testing negative. COVID 19 testing negative. 2. Dehydration, acute, present on admission, resolved -pharyngitis and tonsillitis Are causing her significant pain limiting her ability to tolerate adequate oral intake at this time. Discontinue IV hydration. 3. Neutropenic fever, acute, present on admission -outpatient lab values with a WBC of 1.1 with 4% neutrophils, or a neutrophil count of 44 on admission. Rapidly improved to 1394 ANC but then now is 80. This may be secondary to her chemotherapy however unclear at this time. -patient was put on cefepime and vanco, however given resolution of neutropenia on labs this was narrowed. Given clear source of infection will continue targeted antibiotics. 4. Langerhans cell histiocytosis, - s/p tumor resection recently, biopsy revealed the above diagnosis. Currently undergoing chemotherapy with cytarabine and ovary sparing leupron. - will continue to monitor Code: Full as discussed with the patient DVT: lovenox daily Dispo: changed to inpatient, likely discharge home once fevers improved and patient is able to tolerate adequate oral intake. COVID-19 COVID-19 status: Negative
[2020-12-20] MEDS: OXYCODONE IR 5 MG TABLET PO (18:03)
[2020-12-20] MEDS: SENNOSIDES 8.6 MG TABLET PO (21:00)
[2020-12-21 00:08] VITALS: BP 122/70; PULSE 92; RESP 16; TEMP 36.9; O2SAT 99
[2020-12-21 00:13] VITALS: O2SAT 99
[2020-12-21] MEDS: AMPICILLIN/SULBACTAM 3 GM 3 GM in SODIUM CHLORIDE 0.9% 100 ML IV ×2 (00:35→06:12)
[2020-12-21] MEDS: VANCOMYCIN 1,500 MG/300 ML PIGGYBACK 200 MG IV (02:14)
[2020-12-21 04:56] VITALS: O2SAT 99
[2020-12-21 05:20] VITALS: BP 104/63; PULSE 95; RESP 16; TEMP 37; O2SAT 99
[2020-12-21] MEDS: OXYCODONE IR 10 MG TABLET PO (06:37)
[2020-12-21 06:52] LABS: Hematocrit 25.7 % (36-46); Hemoglobin 8.8 g/dL (12.0-16.0); Mean Corpuscular HGB Conc 34.3 % (30-36); Mean Corpuscular Hemoglobin 27.5 PG (26-34); Mean Corpuscular Volume 80.4 fL (80-100); Platelet Count 676 X10^3/uL (150-400); Red Cell Distribution Width 14.7 % (11.6-14.8); White Blood Cell Count 3.4 X10^3/uL (4.5-11.0)
[2020-12-21 06:55] LABS: BUN Creatinine Ratio 6.7 (6-22); Blood Urea Nitrogen 4 mg/dL (7-17); Calcium 8.7 mg/dL (8.4-10.2); Carbon Dioxide 24 mmol/L (22-32); Chloride 107 mmol/L (98-107); Estimated Glomerular Filt Rate > 60.0 mL/min (>60); Glucose 94 mg/dL (70-100); HEMOLYSIS < 15 (0-50); Magnesium 2.1 mg/dL (1.6-2.3); Potassium 3.4 mmol/L (3.4-5.1); Sodium 138 mmol/L (137-145)
[2020-12-21 06:59] LABS: Add Manual Diff / Slide Review YES
[2020-12-21 07:36] LABS: Anisocytosis 2+; Neutrophils Absolute Manual 408 /uL (3000-5900); Total Cells Counted 50
[2020-12-21] MEDS: IBUPROFEN 600 MG TABLET PO (08:25)
--- NOTE | 2020-12-21 08:36 | P.DS_ITS ---
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 Patient states that starting yesterday she has developed a sore throat, with severe pain upon swallowing. She denies any symptoms like this in the past. She denies overt fever, chills, nausea, vomiting, abdominal pain, chest pain, shortness of breath, lower extremity edema, rash. Her sore throat is severe enough that is causing her a lot of disc omfort and she has been unable to tolerate much oral intake since yesterday. In the emergency room, the patient was tachycardic into the 120s-130s, improved with initial fluid bolus. She was mildly hypertensive which improved upon arrival to the hospital floor. The remainder of her vital signs were unremarkable and she was saturating well on room air. Chest x-ray was performed which was unremarkable. Urinalysis was performed which showed 1-5 wbc's and rbc's per high-power field but is also slightly contaminated with 1-5 squamous epithelial cells. COVID-19 testing was negative. Rapid strep testing was negative. Monospot testing was negative. CBC performed as an outpatient showed a WBC of 1.1, with 4% neutrophils (Neutrophil count of 44). Patient was admitted for acute dehydration secondary to pharyngitis of uncertain etiology. Discharge Providers Provider Date of admission: 12/18/20 14:36 Discharge Date: 12/21/20 Primary care physician: Ronak Rollins MD Consults: 12/18/20 14:03 Consult to Hospitalist Service Stat Comment: Consulting Provider: Nirmal Patel Reason for consultation: admission Has provider been notified: Yes Discharge provider: Nirmal Patel DO Summary Hospital Course Discharge Diagnosis: Please see hospital course by problem list noted below. 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 Patient was admitted for acute dehydration secondary to pharyngitis of uncertain etiology, and severe digna tropenia. 1. Acute pharyngitis and tonsillitis, present on admission - CENTOR score is 4. There were patchy white exudates on her tonsils. Rapid strep and monospot testing negative. Throat culture was sent and currently growing staph aureus, sensitivities currently pending. Please follow up with PCP. Recommend ENT referral as an outpatient for consideration of tonsillectomy as this is her second tonsilitis inection. -She was given a dose of cefepime in the emergency room, then given ceftriaxone and broadened to cefepime again and vancomycin after developing fever. Narrowed to unasyn as 2nd day neutropenia seemingly resolved. Throat cultures with staph aureus, awaiting sensitivities. She was then again neutropenic, and was continued on unasyn and vancomycin until resolution of fever for >24 hours. She will be discharged home on clindamycin which will cover her tonsilitis even with possible MRSA, and can be used in neutropenic fever coverage as well. -given continued symptoms, fevers worsening, CT of the neck was performed which did not reveal an abscess. -supportive care with lidocaine viscous was provided without much assistance. However her pain was better controlled with 10 mg of oxycodone, sent a 7 day supply on discharge. She was able to tolerate adequate oral intake on the day of discharge. -HIV testing negative. COVID 19 testing negative. 2. Dehydration, acute, present on admission, resolved -pharyngitis and tonsillitis Are causing her significant pain were limiting her ability to tolerate adequate oral intake. Discontinued IV hydration when rehydrated. 3. Neutropenic fever, acute, present on admission -outpatient lab values with a WBC of 1.1 with 4% neutrophils, or a neutrophil count of 44 on admission. Rapidly improved to 1394 ANC but then again fell to 80 the following day. This may be secondary to her chemotherapy however unclear at this time. On day of discharge, neutrophil count improved to 408 (although 12% bands). -chest xray was negative, UA with no evidence of infection. Blood cultures negative thus far. -patient was put on cefepime and vanco, however given resolution of neutropenia on labs this was narrowed. Given clear source of infection will continue targeted antibiotics as noted above, however clindamycin on discharge was used as this can also be used for neutropenic fever coverage at 300 mg QID. -recommend follow up with her oncologist for further management as an outpatient and further discussion on whether to continue her next chemotherapy cycle. 4. Langerhans cell histiocytosis, - s/p tumor resection recently, biopsy revealed the above diagnosis. Currently undergoing chemotherapy with cytarabine and ovary sparing leupron. - will continue to monitor Dispo: discharged home. Status at Discharge Cognitive/behavioral status at discharge: oriented Time Spent with Patient Time spent: Less than 30 minutes Exam Vital Signs (past 8 hours): - 12/21/20 04:56 12/21/20 05:20 Temperature 98.6 F Pulse Rate 95 H Respiratory Rate 16 Blood Pressure 104/63 Pulse Oximetry 99 99 Oxygen Delivery Method Room Air Oxygen Flow Rate 0 Narrative Exam Narrative: ENERAL APPEARANCE: Well developed, well nourished, in no acute distress. SKIN: Inspection of the skin reveals no rashes, ulcerations or petechiae. HEENT: Normocephalic atraumatic, extraocular muscles are intact, oropharynx is clear and mucous membranes are moist. There are bilaterally enlarged tonsils without exudates today. Pharyngeal erythema also present. NECK: Supple and symmetric. There was no thyroid enlargement. Neck is slightly tender bilaterally, with bilateral cervical adenopathy. CHEST: Normal AP diameter and normal contour without any kyphoscoliosis. LUNGS: Auscultation of the lungs revealed no wheezes, rhonchi, or rales. CARDIOVASCULAR: There was a tachycardic rate with regular rhythm without any murmurs, gallops, rubs. Peripheral pulses were 2+ and symmetric. ABDOMEN: Soft and nontender with normal bowel sounds. MUSCULOSKELETAL: There was no tenderness or effusions noted. Muscle strength and tone were normal. EXTREMITIES: No cyanosis, clubbing or edema. NEUROLOGIC: Alert and oriented x 3. Normal affect. Gait was normal. Strength is +5/5 in the Upper Extremities and Lower Extremities Bilaterally. Sensation to touch was normal. Objective Labs Result Diagrams: 12/21/20 06:35 12/21/20 06:35 Labs: Laboratory Results - last 24 hr 12/21/20 12/21/20 06:35 06:35 WBC 3.4 L D RBC 3.20 L Hgb 8.8 L Hct 25.7 L MCV 80.4 MCH 27.5 MCHC 34.3 RDW 14.7 Plt Count 676 H Neut % (Auto) Gerontological Nurse Practitioner Lymph % (Auto) Gerontological Nurse Practitioner [place] % (Auto) Gerontological Nurse Practitioner Eos % (Auto) Gerontological Nurse Practitioner Baso % (Auto) Gerontological Nurse Practitioner Neut # (Auto) Gerontological Nurse Practitioner Lymph # (Auto) Gerontological Nurse Practitioner [place] # (Auto) Gerontological Nurse Practitioner Eos # (Auto) Gerontological Nurse Practitioner Baso # (Auto) Gerontological Nurse Practitioner Total Counted 50 Band Neutrophils % 12.0 H Lymphocytes % (Manual) 50.0 H Atypical Lymphs % 22.0 H Monocytes % (Manual) 12.0 H Eosinophils % (Manual) 2.0 Metamyelocytes % 2.0 H Neutrophils # (Manual) 408 L RBC Morphology See below Anisocytosis 2+ H Sodium 138 Potassium 3.4 Chloride 107 Carbon Dioxide 24 BUN 4 L Creatinine 0.60 Estimated GFR > 60.0 BUN/Creatinine Ratio 6.7 Glucose 94 Calcium 8.7 Magnesium 2.1 PFSH Medical History Acne (~2016) Acne vulgaris Anxiety (~2017) Chicken pox (~1995) Dog bite of hand GERD (gastroesophageal reflux disease) (~2019) IBS (irritable bowel syndrome) (~2019) Langerhans cell histiocytoses Migraines (~2018) Ovarian cyst (~2018) PTSD (post-traumatic stress disorder) (~2018) Tinnitus (~2017) Uterine polyp (~2019) Surgical History Anesthesia History of bunionectomy (~2012) History of dilation and curettage (~2019) History of foot surgery (~2019) Family History Father Diabetes mellitus Hyperlipidemia Hypertension Grandfather Skin cancer Grandmother Acute kidney failure Grandfather Lung cancer Diabetes mellitus Hyperlipidemia Hypertension Mental health problem Alzheimer's disease Grandmother Breast cancer Diabetes mellitus Social History household members: spouse Smoking Status: Never smoker alcohol intake: never Discharge Plan Discharge Plan Patient Disposition: Home Provider Discharge Comment: You were admitted to the hospital with tonsillitis and neutropenia. Your neutrophil count is improving, as is your tonsil / throat infection. Cultures are growing Staph Aureus, but it is safe to discharge on clindamycin given continued improvement. This has the benefit of covering your tonsil infection and a neutropenic fever. Please follow up with your PCP as this is a recurrent or 2nd episode of tonsillitis you may want to discuss tonsillectomy with an ENT. Discharge orders & Medications Prescriptions: New oxycodone 10 mg Tablet 10 mg PO Q4H PRN (Reason: Pain, Severe (7-10)) 7 Days Qty: 20 RF: 0 clindamycin HCl 300 mg capsule 300 mg PO Q6H 7 Days Qty: 28 RF: 0 Continued pantoprazole [Protonix] 20 mg tablet,delayed release (DR/EC) 20 mg PO DAILY Qty: 90 RF: 0 prochlorperazine maleate 5 mg Tablet 5 mg PO BID PRN (Reason: Nausea) RF: 0 famotidine 40 mg Tablet 40 mg PO DAILY RF: 0 clonazepam 0.5 mg Tablet 0.5 mg PO TID PRN (Reason: Anxiety) RF: 0 acyclovir 800 mg Tablet 800 mg PO BID RF: 0 norethindrone acetate 5 mg Tablet 5 mg PO DAILY RF: 0 ergocalciferol (vitamin D2) 25,000 unit Capsule 50,000 unit PO Q7D RF: 0 senna 8.6 mg Capsule 8.6 mg PO BID PRN (Reason: Constipation) RF: 0 ferrous sulfate 324 mg (65 mg iron) Tablet,Delayed Release (Dr/Ec) 324 mg PO BID RF: 0 melatonin 10 mg Tablet 10 mg PO BEDTIME PRN (Reason: Insomnia) RF: 0 Discontinued oxycodone 5 mg Tablet 5 mg PO Q4H PRN (Reason: Pain (Scale Score 4-6)) RF: 0 ciprofloxacin HCl 500 mg Tablet 500 mg PO BID Qty: 14 RF: 0 Follow up/Referrals: Ronak Rollins MD [Primary Care Provider] - Diet/Activity/Treatments Diet: Diet as Tolerated Activity: As tolerated Visit Report/Discharge Packet Instructions: Oxycodone, Ibuprofen, Clindamycin, DI for Staph Infection, Staph Infection Discharge Data Primary Care Provider: Ronak Rollins
--- NOTE | 2020-12-21 08:50 | PC.NURSE ---
Assess- Patient is in good spirits this morning, she would like to go home. talked with her about her labs. Given ibuprofen for complaints of 5/10 pain to her throat. Patients tongue is slightly swollen but she states that she is not having any problems breathing. in room and visiting, he has been helpful with patients care.
[2020-12-21 09:31] VITALS: BP 113/67; PULSE 87; RESP 16; TEMP 36.9; O2SAT 98
[2020-12-21] MEDS: FERROUS SULFATE 325 MG TABLET PO (09:32)
[2020-12-21] MEDS: NORETHINDRONE ACETATE 5 MG 5 EACH PO (09:32)
[2020-12-21] MEDS: ACYCLOVIR 400 MG TABLET 800 MG PO ×2 (09:32→09:34)
[2020-12-21] MEDS: PANTOPRAZOLE 20 MG TABLET PO (09:32)
[2020-12-21] MEDS: ENOXAPARIN 40 MG/0.4 ML SYRINGE SUBCUT (09:32)
== END 2020-12-21 11:00 | disposition home or self-care (01) | DRG 153 ==
LOC: ED 14:29 → AC 14:40
PROVIDERS: Admitting Provider Internal Medicine; Emergency Provider Emergency Medicine; PCP Family Medicine; Referring Provider Emergency Medicine; Visit Provider Internal Medicine
DX: J03.90 Acute tonsillitis, unspecified (principal); C96.6 Unifocal Langerhans-cell histiocytosis; D84.89 Other immunodeficiencies; D70.1 Agranulocytosis secondary to cancer chemotherapy; E86.0 Dehydration; Z20.822 Contact with and (suspected) exposure to COVID-19
CPT/HCPCS: 36415; 36591; 70491; 71045; 80048; 80053; 80202; 81001; 81003; 81025; 83036; 83605; 83690; 83735; 84145; 84443; 85007; 85025; 86318; 87040; 87070; 87077; 87086; 87147; 87186; 87389; 87635; 87880; 93005; 96361; 96365; 99284; J0295; J0692; J1642; J1650

== ENCOUNTER → 2021-03-19 09:28 | Outpatient (CLI) | payer OTHER, SELFPAY ==
[2020-12-18 16:51] VITALS: BMI 35.5
[2021-03-19 09:49] LABS: Add Manual Diff / Slide Review NO; Basophils Absolute Auto 0 /uL (0-100); Basophils Percent Auto 0.1 % (0-2); Eosinophils Absolute Auto 300 /uL (0-450); Eosinophils Percent Auto 7.3 % (2-4); Hematocrit 36.8 % (36-46); Hemoglobin 11.9 g/dL (12.0-16.0); Lymphocytes Absolute Auto 2000 /uL (1100-4500); Mean Corpuscular HGB Conc 32.5 % (30-36); Mean Corpuscular Hemoglobin 29.6 PG (26-34); Mean Corpuscular Volume 91.2 fL (80-100); Monocytes Absolute Auto 100 /uL (0-900); Monocytes Percent Auto 3.4 % (3-14); Neutrophils Absolute Auto 1500 /uL (1500-7000); Neutrophils Percent Auto 39.2 % (50-75); Platelet Count 406 X10^3/uL (150-400); Red Blood Cell Count 4.03 X10^6/uL (4.0-5.2); Red Cell Distribution Width 17.8 % (11.6-14.8); White Blood Cell Count 3.9 X10^3/uL (4.5-11.0)
[2021-03-19 10:08] LABS: Alanine Aminotransferase 16 IU/L (<35); Albumin 4.1 g/dL (3.5-5.0); Albumin Globulin Ratio 1.2 (1.0-2.8); Alkaline Phosphatase 60 U/L (38-126); Aspartate Aminotransferase 21 IU/L (14-36); BUN Creatinine Ratio 15.1 (6-22); Bilirubin Total 0.4 mg/dL (0.2-1.3); Blood Urea Nitrogen 14 mg/dL (7-17); Calcium 9.4 mg/dL (8.4-10.2); Carbon Dioxide 24 mmol/L (22-32); Chloride 107 mmol/L (98-107); Estimated Glomerular Filt Rate > 60.0 mL/min (>60); Globulin 3.5 g/dL (1.7-4.1); Glucose 94 mg/dL (70-100); HEMOLYSIS < 15 (0-50); Potassium 4.5 mmol/L (3.4-5.1); Sodium 139 mmol/L (137-145); Total Protein 7.6 g/dL (6.3-8.2)
[2021-03-19 10:13] LABS: Hemoglobin A1C% w Est Avg Glu 5.3 % (4.0-6.0)
[2021-03-19 10:34] LABS: HEMOLYSIS < 15 (0-50); Iron 39 ug/dL (37-170)
[2021-03-19 10:43] LABS: Ferritin 30 ng/mL (6-137)
[2021-03-19 10:44] LABS: Percent Iron Saturation 13 % (15-50); Total Iron Binding Capacity 302 ug/dL (265-497); Transferrin 226 mg/dL (206-381)
[2021-03-19 10:58] LABS: Vitamin D 25 Hydroxy (D3) 47.8 ng/mL (30.0-100.0)
== END ==
PROVIDERS: Internal Medicine; PCP Family Medicine; Referring Provider Family Medicine; Visit Provider Family Medicine
DX: C96.6 Unifocal Langerhans-cell histiocytosis (principal); R63.5 Abnormal weight gain; E55.9 Vitamin D deficiency, unspecified; E61.1 Iron deficiency
CPT/HCPCS: 36415; 80053; 82306; 82728; 83036; 83540; 83550; 85025

== ENCOUNTER → 2021-04-20 11:45 | Outpatient (CLI) | payer OTHER, SELFPAY ==
[2020-12-18 16:51] VITALS: BMI 35.5
--- NOTE | 2021-04-20 11:52 | DIET.PN ---
Dietary Progress Note Assessment: 25y [address] visit for help with abnormal weight gain. Pt dx c Langerhans cell histiocytosis last year, has had series of 3 Lupron injections, gained 10#, 10#, 15# respectively. Pt on lupron to protect ovaries during chemo and will have last cycle next week. Pt has abnormal weight gain possible medication reaction from Lupron. Pts chemo protocol is 3d of infusions, she basically sleeps entire week during chemo txs from Tuesday to Tuesday before feeling less fatigued. Pt Wt Hx: Pt was weight stable most of life, played soccer and track through high school, active adult in . Gained weight during covid, gyms closed, was baking, then dx c tumors in skull, got depressed. Pt has been tracking calories on My Fitness Pal set at 1300 kcals, not monitoring macros, also using NOOM but not seeing results. Physical Activity: Does Crossfit 4-5xw (4:30pm) for the past 3mo and enjoys it Usual Day: wakes up and walk dogs B: eggs c toast or smoothie (1c blueberries, 1 banana, cranberry juice) L: sometimes skips, sandwich or salad D: chicken, salmon, burger c cauliflower rice If still hungry in evening has smoothie: 1 c blueberries, 1 banana, cranberry (no protein powder, messes c stomach) water throughout day sometimes fizzy water HT: 5'6 WT: 250# UBW: 210# BMI: 40.3 Labs: A1c 5.3 RD Impression: Pt likely experiencing abnormal weight gain from a variety of factors: covid related decreased physical activity and increased kcal intake (baking, carbs), chemo fatigue, side-effect of Lupron, depression secondary to pandemic and oncology process. While pt is exercising and watching her calories, pt is likely not creating enough of a discrepancy to see significant results. Pts daily smoothie is high carb (~75grams) with no protein. Nutrition Diagnosis: abnormal weight gain r/t atypical eating and exercise with possible medication interaction (Lupron) aeb pt reports 10-15# weight gain with each Lupron injection, pt exercised less and ate more baked goods during global pandemic, BMI 40.3, pt tracking food and exercising weekly with no significant weight loss observed. Interventions: 1. To support pts desired weight loss, recalibrated pts My Fitness Pal to reflect 1400kcals, and lower carb level. Pt will continue to record food intake and keep attentive to macronutrient ratios. 2. Discussed current diet and ways to optimize for goal of weight loss: Pt will consume 500 kcals Breakfast and Dinner and 400 kcals lunch. Pt will stick to 2 eggs c thin sliced toast for breakfast or a smoothie with 1 banana, 1 c blueberries, mixed c lowfat or nonfat yogurt and almond milk, choose 2 items from 200 kcal Snack sheet for lunch, and have 4-5oz lean protein c 2-3c cooked or raw veggies for dinner. 3. Pt will continue to do Crossfit 4-5x/w and add 30 minute walk daily. EER: 1400kcals, 105g PRO, 125g CHO, 52g Fat Monitoring/Evaluations: f/u in 4w to assess progress and problem solve barriers, possible short term keto diet plan x4w if current interventions not effective.
[2021-04-20 12:04] VITALS: BMI 40.3
== END ==
PROVIDERS: PCP Family Medicine; Referring Provider Family Medicine; Visit Provider Family Medicine
DX: E66.9 Obesity, unspecified (principal); C96.6 Unifocal Langerhans-cell histiocytosis; Z68.41 Body mass index [BMI] 40.0-44.9, adult; Z71.3 Dietary counseling and surveillance
CPT/HCPCS: 97802

== ENCOUNTER → 2021-05-19 13:54 | Outpatient (CLI) | payer OTHER, SELFPAY ==
[2020-12-18 16:51] VITALS: BMI 35.5
== END ==
PROVIDERS: PCP Family Medicine; Referring Provider Internal Medicine Medical Oncology; Visit Provider Internal Medicine Medical Oncology
DX: C96.6 Unifocal Langerhans-cell histiocytosis (principal)

== ENCOUNTER → 2021-09-08 15:03 | Outpatient (CLI) | payer OTHER, SELFPAY ==
[2020-12-18 16:51] VITALS: BMI 35.5
--- NOTE | 2021-09-08 15:05 | DI.RAD.S_ITS ---
PROCEDURE: XR ELBOW RT MIN 3V INDICATIONS: right elbow pain TECHNIQUE: 3 views of the elbow were acquired. COMPARISON: None. FINDINGS: Bones: No fractures or dislocations. No suspicious bony lesions. Soft tissues: No elbow joint effusion. No suspicious soft tissue calcifications. IMPRESSION: No acute osseous abnormality. Dictated by: Vishal Haryd M.D. on 09/08/2021 at 16:07 Approved by: Vishal Hardy M.D. on 09/08/2021 at 16:07
== END ==
PROVIDERS: PCP Family Medicine; Referring Provider Family Medicine; Visit Provider Family Medicine
DX: M25.521 Pain in right elbow (principal)
CPT/HCPCS: 73080